=== PATIENT | male | born 1945 | race Caucasian/White ===

== ENCOUNTER → 2017-03-29 | Outpatient (CLI) | payer OTHER ==
[~2017-03-29] MED LIST: AMLO5TAB2 PO; ATOR10TA9 PO; CELE200C PO; LOSA100T6 PO; LOSA1TAB17 PO; METF10002 PO; OMNIPAQUE 350 MG/ML, 100ML BOTTLE ONE; OXYC1TAB8 PO; POLY17PO5 PO; PRAV10TA2 PO; PROM12.553 RC; SAXA5TAB PO; UBID100C41 PO; VITA100C4 PO; VITA400C43 PO; ZOLP5TAB6 PO
== END | disposition home or self-care (01) ==
LOC: CFH 10:20
PROVIDERS: ATTEND Surgery
DX: N28.1 Cyst of kidney, acquired (principal); M47.896 Other spondylosis, lumbar region; K76.0 Fatty (change of) liver, not elsewhere classified; Z90.81 Acquired absence of spleen; Z90.49 Acquired absence of other specified parts of digestive tract
CPT/HCPCS: 74170; Q9967

== ENCOUNTER → 2018-09-21 | Outpatient (CLI) | payer OTHER ==
[~2018-09-21] MED LIST changes: +AMLO-150 PO; -AMLO5TAB2 PO; +LOSA100T14 PO; -LOSA100T6 PO; -LOSA1TAB17 PO; +LOSA1TAB22 PO; -OMNIPAQUE 350 MG/ML, 100ML BOTTLE ONE; +OMNIPAQUE 350 MG/ML, 75ML BOTTLE ONE
== END | disposition home or self-care (01) ==
LOC: CFH 09:59
PROVIDERS: ATTEND Nurse Practitioner Family
DX: R91.1 Solitary pulmonary nodule (principal); D17.79 Benign lipomatous neoplasm of other sites; M47.814 Spondylosis without myelopathy or radiculopathy, thoracic region; R19.00 Intra-abdominal and pelvic swelling, mass and lump, unspecified site
CPT/HCPCS: 71260; Q9967